=== PATIENT | male | born 1965 | race Caucasian/White ===

== ENCOUNTER → 2017-11-16 | Outpatient (REF) | payer BC ==
[~2017-11-16] MED LIST: CEP500 PO; ESCI20TA38 PO; IBU800 PO; PER PO
[2017-11-16 11:34] LABS: PLATELET COUNT, AUTOMATED 184 K/uL (150-450)
== END ==
LOC: ZZSENDIN 10:49
PROVIDERS: ATTEND Physician Assistant
DX: Z01.812 Encounter for preprocedural laboratory examination (principal); Z01.810 Encounter for preprocedural cardiovascular examination; M16.12 Unilateral primary osteoarthritis, left hip
CPT/HCPCS: 81001; 82040; 82247; 82310; 82374; 82435; 82565; 82947; 84075; 84132; 84155; 84295; 84450; 84460; 84520; 85025; 86850; 86900; 86901; 87088